=== PATIENT | female | born 1990 | race Two or more races ===

== ENCOUNTER 2024-02-05 11:00 | Emergency (ER) | payer MEDICAID, OTHER ==
[~2024-02-05] VITALS: Ht 180.3 cm; Wt 65.0 kg
[2024-02-05] MEDS: SODIUM CHLORIDE 0.9% 1,000 ML IV ONE ×3 (11:15→16:30)
[2024-02-05] MEDS: THIAMINE 100mg/ml INJ (200mg/2ml VIAL) IV ONE (11:15)
[2024-02-05 11:42] LABS: Anion Gap 10 (5-15); Carbon Dioxide 24 mmol/L (20-30); Chloride 107 mmol/L (98-107); Potassium 3.2 mmol/L (3.5-5.1); Sodium 141 mmol/L (136-145)
[2024-02-05 11:48] LABS: BUN/Creatinine Ratio 11.7 (10.0-20.0); Blood Alcohol 67.1 mg/dL (<10); Blood Urea Nitrogen 7 mg/dL (9-23); Glucose 102 mg/dL (74-106)
[2024-02-05 11:49] LABS: Basophils # (auto) 0 10 ^3/uL (0-0.2); Eosinophils # (auto) 0 10 ^3/uL (0-0.8); Hemoglobin 10.7 g/dL (12.2-16.2); Lymphocytes # (auto) 0.6 10 ^3/uL (0.4-5.4); Monocytes # (auto) 0.2 10 ^3/uL (0-1.3); White Blood Cell 4.1 10^3/uL (4.4-10.8)
[2024-02-05 11:52] LABS: Basophils % (auto) 1.1 % (0.0-2.0); Eosinophils % (auto) 0.4 % (0.0-7.0); Hematocrit 33.4 % (36.0-46.0); Mean Corpuscular Volume 81.3 fL (80.0-100.0); Monocytes % (auto) 5.7 % (0.0-12.0); Neutrophils # (auto) 3.3 10 ^3/uL (1.6-8.6); Neutrophils % (auto) 78.8 % (37.0-80.0); Nucleated Red Blood Cells % 0.1 %; Red Blood Cells 4.11 10^6/uL (4.0-5.20); Red Cell Distribution Width 14.5 % (11.8-14.3)
[2024-02-05 12:21] LABS: Urine Bacteria FEW /hpf (None Seen); Urine Blood Negative /uL (Negative); Urine Clarity Clear (Clear); Urine Color Colorless (Yellow); Urine Protein, UAD Negative (Negative); Urine Specific Gravity 1.007 (1.001-1.035); Urine Urobilinogen Normal (Negative); Urine WBC 1 /hpf (0 - 5)
[2024-02-05 12:25] LABS: Albumin 4.2 g/dL (3.2-4.8); Bilirubin, Direct 0.1 mg/dL (<0.3); Bilirubin, Total 0.4 mg/dL (0.2-1.0); Magnesium 1.8 mg/dL (1.6-2.6)
[2024-02-05 12:28] LABS: Amphetamine Screen, Urine Neg (NEGATIVE); Barbiturate Scree,Urine Neg (NEGATIVE); Benzodiazephine Screen, Urine Neg (NEGATIVE); Cocaine Screen, Urine Pos (NEGATIVE)
[2024-02-05 12:29] LABS: Cannabinoid Screen, Urine Neg (NEGATIVE); Opiate Scree,Urine Neg (NEGATIVE); Phencyclidine Screen, Urine Neg (NEGATIVE)
[2024-02-05 12:55] VITALS: PULSE 92; RESP 17; O2SAT 99
[2024-02-05 19:45] VITALS: BP 105/50; PULSE 95; RESP 12; O2SAT 98
[2024-02-05 20:33] LABS: Acetaminophen < 2.0 UG/ML (10.0-20.0)
[2024-02-05 20:36] LABS: Salicylate < 3.0 mg/dL (2.8-20.0)
== END 2024-02-05 22:45 | disposition home or self-care (01) ==
LOC: ER 11:00 → EDBD 11:00 → ER 22:44
DX: T43.212A Poisoning by selective serotonin and norepinephrine reuptake inhibitors, intentional self-harm, initial encounter (principal); D64.9 Anemia, unspecified; F10.10 Alcohol abuse, uncomplicated; F14.10 Cocaine abuse, uncomplicated; R45.851 Suicidal ideations; F41.9 Anxiety disorder, unspecified; F32.9 Major depressive disorder, single episode, unspecified; Z98.890 Other specified postprocedural states; Z79.899 Other long term (current) drug therapy; Y92.89 Other specified places as the place of occurrence of the external cause; Y90.0 Blood alcohol level of less than 20 mg/100 ml
CPT/HCPCS: 36415; 80048; 80076; 80307; 80320; 80329; 81001; 81025; 83735; 84484; 85025; 93005; 96361; 96374; 99284; J3411; J7030